=== PATIENT | male | born 1965 | race Two or more races ===

== ENCOUNTER 2020-06-18 17:40 | Inpatient (IN) | payer BC, OTHER ==
[~2020-06-18] VITALS: Ht 162.6 cm; Wt 81.7 kg
--- OUTSIDE RECORDS SUMMARY | ~2020-06-18 | XMS | Clinical Summary ---
Demographics + + + | Address | [address] | | | [place] [address] | + + + | Home Phone | | + + + | Preferred Language | Unknown | + + + | Marital Status | Single | + + + | Adventism Affiliation | Unknown | + + + | Race | Unknown | + + + | Ethnic Group | Unknown | + + + Author + + + | Author | [facility] | | | and [place] | + + + | Organization | [facility] | | | and [place] | + + + | Address | Unknown | + + + | Phone | Unavailable | + + + Support + + +---------+ + | Name | Relationship | Address | Phone | + + +---------+ + | Per Pt Non To List | ECON | Unknown | Unavailable | + + +---------+ + Care Team Providers + +------+ + | Care Compliance Project Manager Name | Role | Phone | + +------+ + PCP | Unavailable | + +------+ + Allergies Not on File Medications Not on file Active Problems Not on file Social History + +-------+ +--------+------+ | Tobacco Use | Types | Packs/Day | Years | Date | | | | | Used | | + +-------+ +--------+------+ | Never Assessed | | | | | + +-------+ +--------+------+ + + + | Sex Assigned at | Date Recorded | | | | + + + | Not on file | | + + + Last Filed Vital Signs Not on file Plan of Treatment + + +-------+ + | Health Maintenance | Due Date | Last | Comments | | | | Done | | + + +-------+ + | Vaccine: | | | | | Dtap/Tdap/Td (1 - | 5 | | | | Tdap) | | | | + + +-------+ + | Vaccine: Zoster (1 | | | | | of 2) | 6 | | | + + +-------+ + | Vaccine: Influenza | | | | | (#1) | 0 | | | + + +-------+ + Results Not on filefrom Last 3 Months"
--- OUTSIDE RECORDS SUMMARY | ~2020-06-18 | XMS | Encounter Summary ---
Demographics + + + | Address | [address] | | | [place] [address] | + + + | Home Phone | | + + + | Preferred Language | Unknown | + + + | Marital Status | Single | + + + | Amish Affiliation | Unknown | + + + | Race | Unknown | + + + | Ethnic Group | Unknown | + + + Author + + + | Author | [facility] | | | and [place] | + + + | Organization | [facility] | | | and [place] [...] Team Providers + +------+ + | Care Reservoir Engineer Name | Role | Phone | + +------+ + PCP | Unavailable | + +------+ + Encounter Details +--------+ + + + + | Date | Type | Department | Care Team | Description | +--------+ + + + + | 07/23/ | Emergency | 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
--- OUTSIDE RECORDS SUMMARY | ~2020-06-18 | XMS | Encounter Summary ---
Demographics + + + | Address | [address] | | | [place] [address] | + + + | Home Phone | | + + + | Preferred Language | Unknown | + + + | Marital Status | Single | + + + | Presybeterian Affiliation | Unknown | + + + | Race | Unknown | + + + | Ethnic Group | Unknown | + + + Author + + + | Author | [facility] | | | and [place] | + + + | Organization | [facility] | | | and [place] | [...] Team Providers + +------+ + | Care Timber Incisor Operator Name | Role | Phone | + +------+ + PCP | Unavailable | + +------+ + Encounter Details +--------+ + + + + | Date | Type | Department | Care Team | Description | +--------+ + + + + | 07/23/ | Emergency | [facility] | Johann Block DO | MALE GENITAL DIS NEC | | 2005 | | [facility] | [address] | | | | | EMERGENCY CENTER | [place] [address] | | | | | [address] [facility] | [phone] | | | | | [place], [place] | | | | | | [address] | | | | | | [phone] | | | +--------+ + + + [...]
--- OUTSIDE RECORDS SUMMARY | ~2020-06-18 | XMS | Clinical Summary ---
Demographics + + + | Address | [address] | | | [place] [address] | + + + | Home Phone | | + + + | Preferred Language | Unknown | + + + | Marital Status | Single | + + + | Taoism Affiliation | Unknown | + + + | Race | Unknown | + + + | Ethnic Group | Unknown | + + + Author + + + | Author | [facility] | | | and [place] | + + + | Organization | [facility] [...] Team Providers + +------+ + | Care Information Technology Analyst Name | Role | Phone | + [...]
[~2020-06-18 17:40] MED LIST: NORCO 5-325 TA1 EACH PO
--- NOTE | 2020-06-19 13:08 | EKG ---
[facility] [address] [facility] [place], [place] [address] Signed Normal sinus rhythm Inferior infarct , age undetermined Abnormal ECG No previous ECGs available Confirmed by BRENDA BRANCH MD ([id number]) on 06/19/2020 1:07:48 PM Electronically Signed By: BRENDA BRANCH MD 06/19/20 1308 PATIENT NAME: MARIAM CERDANAMITA Electrocardiogram DATE OF : 67 PHYSICIAN: BRENDA BRANCH MD REPORT #: [id number] REPORT IS CONFIDENTIAL AND NOT TO BE RELEASED WITHOUT AUTHORIZATION
[2020-06-19] MEDS ORDERED: LEVOTHYROXINE175 MCG PO (14:49)
[2020-06-19] MEDS ORDERED: ESZOPICLONE3 MG PO (14:50)
== END 2020-06-26 15:20 | disposition short-term general hospital (02) | DRG 177 ==
LOC: ED 17:40 → MS 20:01 → CCU 20:01 → MS 06-21 11:18 → CCU 06-21 11:19 → MS 06-21 20:14 → CCU 06-23 10:10
PROVIDERS: ADMIT Internal Medicine
PROC: 0BH17EZ Insertion of Endotracheal Airway into Trachea, Via Natural or Artificial Opening (ICD-10-PCS; principal; 2020-06-26)
DX: U07.1 COVID-19 (principal); J12.89 Other viral pneumonia; J96.01 Acute respiratory failure with hypoxia; D69.6 Thrombocytopenia, unspecified; R74.0 Nonspecific elevation of levels of transaminase and lactic acid dehydrogenase [LDH]; E03.9 Hypothyroidism, unspecified; K59.00 Constipation, unspecified; Z87.891 Personal history of nicotine dependence
CPT/HCPCS: 31500; 36600; 71045; 71260; 80053; 82803; 83605; 83735; 84484; 85025; 87040; 93005; 93010; 94002; 94667; 94668; 94760; 94799; 96360; 99285-25; J0330; J1100; J1650; J2001; J2704; J7030; J7050; Q9967

== ENCOUNTER 2020-07-17 10:57 | Emergency (ER) | payer BC ==
[~2020-07-17] VITALS: Ht 162.6 cm; Wt 81.7 kg
[~2020-07-17 10:57] MED LIST changes: +ESZOPICLONE3 MG PO; +LEVOTHYROXINE175 MCG PO
--- OUTSIDE RECORDS SUMMARY | 2020-07-17 11:00 | XMS ---
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 Bradley has no Care Guidelines for this patient. E.DMary VISIT COUNT (12 MO.) 2 ANA Persaud TOTAL 2 NOTE: Visits indicate total known visits. ED/UCC VISIT TRACKING (12 MO.) 07/17/2020 10:58 [facility] [place] TYPE: Emergency COMPLAINT: - FEVER, COUGH 06/18/2020 17:40 [facility] [place] TYPE: Emergency COMPLAINT: - FLU SYMPTOMS INPATIENT VISIT TRACKING (12 MO.) 06/26/2020 15:41 [facility] TYPE: Internal Medicine DIAGNOSES: - Takotsubo syndrome - Nonspecific elevation of levels of transaminase and lactic ac - Other specified sepsis - Other thrombophilia - COVID-19 - Other viral pneumonia - Hypoxia, Respiratory Failure, Covid 19 - Overweight - Cardiac arrest, cause unspecified - Acute respiratory failure with hypoxia - Metabolic encephalopathy 06/18/2020 20:01 [facility] [place] TYPE: Critical Care COMPLAINT: - HYPOXIA,COVID 19 DIAGNOSES: - Hypothyroidism, unspecified - Personal history of nicotine dependence - Thrombocytopenia, unspecified - Constipation, unspecified - COVID-19 - Personal history of nicotine dependence - Acute respiratory failure with hypoxia - Hypothyroidism, unspecified - Other viral pneumonia - Nonspecific elevation of levels of transaminase and lactic ac - Nonspecific elevation of levels of transaminase and lactic ac - Constipation, unspecified - Acute respiratory failure with hypoxia - Other viral pneumonia - Thrombocytopenia, unspecified [email or web address]
[2020-07-17] MEDS ORDERED: FLOVENT HFA12 GM INH (11:13)
[2020-07-17] MEDS ORDERED: VENTOLIN HFA18 GM INH (11:13)
[2020-07-17] MEDS ORDERED: VIRTUSSIN AC L118 ML PO (11:14)
[2020-07-17] MEDS ORDERED: LEVOTHYROXINE175 MCG PO (11:14)
[2020-07-17] MEDS ORDERED: ZITHROMAX250 MG PO (15:22)
[2020-07-17] MEDS ORDERED: PREDNISONE20 MG PO (15:22)
== END 2020-07-17 15:59 | disposition home or self-care (01) ==
LOC: ED 10:57
DX: J18.9 Pneumonia, unspecified organism (principal); Z79.899 Other long term (current) drug therapy; Z99.81 Dependence on supplemental oxygen; Z86.19 Personal history of other infectious and parasitic diseases
CPT/HCPCS: 71045; 80048; 83605; 85025; 96361; 96374; 99283-25; J1100; J7030

== ENCOUNTER 2022-09-15 05:35 | Day surgery (SDC) | payer OTHER ==
[~2022-09-15] VITALS: Ht 162.6 cm; Wt 102.7 kg
[~2022-09-15 05:35] MED LIST changes: +FLOVENT HFA12 GM INH; +PREDNISONE20 MG PO; +SINGULAIR10 MG PO; +VENTOLIN HFA18 GM INH; +VIRTUSSIN AC L118 ML PO; +ZITHROMAX250 MG PO
[2022-09-15] MEDS ORDERED: LIPITOR20 MG (05:47)
[2022-09-15] MEDS ORDERED: PREDNISONE20 MG PO (05:47)
--- NOTE | 2022-09-15 08:09 | NUR ---
09/15/22 0809 Sheets,Kyra 0746 PT ARRIVED TO PACU IN 10L VIA MASK, RESP EVEN AND UNLABORED WITH ORAL AIRWAY IN PLACE. PT NONAROUSABLE. 0754 PT WOKE TO TACTILE STIMULI AND ORAL AIRWAY REMOVED. PT COUGHING AND HOB INCREASED SLIGHTLY. PT FALLS BACK TO SLEEP WITH SNORING NOTED. 0757 O2 DECREASED TO 6L. 0802 LARGE AMOUNT OF SNORING NOTED AND PT WOKE TO TACTILE STIMULI. PT NODS TO QUESTIONS. HOB INCREASED AND O2 REMOVED. PT RIGHT BACK TO SLEEP.
--- NOTE | 2022-09-15 12:21 | OR ---
[facility] [address] [place], [place] [address] Signed DATE OF OPERATION: 09/15/2022 SURGEON: Vaibhav Curtis MD PREOPERATIVE DIAGNOSIS: Screening. PREOPERATIVE DIAGNOSES: 1. Moderate internal hemorrhoids. 2. 4 mm polyp at 4 cm. 3. 4 mm polyp at 45 cm. 4. 5 mm polyp at the cecum. 5. 4 mm polyp at hepatic flexure. PROCEDURE: Colonoscopy with hot biopsy. ESTIMATED BLOOD LOSS: None. INDICATIONS: Brian is a 57-year-old obese gentleman, asked to see me for his initial screening colonoscopy. He has no lower GI complaints. There is no family history of colon cancer or polyps. I had given him a pamphlet on colonoscopy. He understands the nature of the test. There is risk including, but not limited to gas bloating, crampy abdominal pain, bleeding, perforation requiring surgery, and missed diagnosis. We also discussed the need for monitored anesthesia care given his heavy full round face, neck, chest, abdomen, and the fact that he had very significant COVID disease just over a year ago. He still continues to cough regularly. He also has sleep apnea requiring CPAP. He expressed understanding and wished to proceed. PROCEDURE NOTE: Brian was taken into our endoscopy suite and placed in the left lateral decubitus position. He was given monitored anesthesia care per our nurse register in chancery. He continued to cough frequently and required significant attention from our anesthesia provider. A digital rectal exam was performed and this was unremarkable. He had no external hemorrhoids. He had good sphincter tone. There were no masses. The adult colonoscope was introduced and advanced all around into the cecum under direct visualization of the camera without difficulty. His prep was good. We could easily see the appendiceal orifice and the ileocecal valve. The above-mentioned polyps were easily Electronically Signed By: VAIBHAV CURTIS MD 09/15/22 1221 PATIENT NAME: BRIAN VERMA OPERATIVE REPORT DATE OF : 67 REPORT #: [id number] PHYSICIAN: VAIBHAV CURTIS MD PCP: MARCELLO RIVAS MD REPORT IS CONFIDENTIAL AND NOT TO BE RELEASED WITHOUT AUTHORIZATION [facility] [address] [place], [place] [address] Signed removed with the help of hot biopsy forceps. Once in the rectum, the scope had been retroflexed and he has minimal to moderate internal hemorrhoid columns. After this, the gas was suctioned out and the colonoscope removed. Brian tolerated the procedure quite well. RECOMMENDATIONS: I will see Brian back in my office in the next 1 to 2 weeks to review his results. Vaibhav Curtis MD ALB/GLORYL /[id number] cc: MD Dr. Marcello Fox Copies: VAIBHAV CURTIS MD ~ Electronically Signed By: VAIBHAV CURTIS MD 09/15/22 1221 PATIENT NAME: BRIAN VERMA OPERATIVE REPORT DATE OF : 67 REPORT #: [id number] PHYSICIAN: VAIBHAV CURTIS MD PCP: MARCELLO RIVAS MD REPORT IS CONFIDENTIAL AND NOT TO BE RELEASED WITHOUT AUTHORIZATION
--- NOTE | 2022-09-21 13:03 | PATH ---
[facility] [address] [place], [place] [address] Signed SPECIMEN(S): A COLON POLYP AT 4 CM SPECIMEN(S): B COLON POLYP AT 45 CM SPECIMEN(S): C CECAL POLYP SPECIMEN(S): D HEPATIC FLEXURE POLYP SPECIMEN SOURCE: A. COLON POLYP AT 4 CM B. COLON POLYP AT 45 CM C. CECAL POLYP D. HEPATIC FLEXURE POLYP CLINICAL HISTORY: Screening colonoscopy. Postop: Polyps, internal hemorrhoids. FINAL PATHOLOGIC DIAGNOSIS: A. Colon polyp at 4 cm: - Hyperplastic polyp (one fragment). B. Colon polyp at 45 cm: - Tubular adenoma (one fragment). C. Cecal polyp: - Tubular adenoma (multiple fragments). D. Hepatic flexure polyp: - Tubular adenoma (one fragment). JVR:[id number]:[id number] MICROSCOPIC EXAMINATION: Histologic sections of all submitted blocks are examined by light microscopy. These findings, together with the gross examination, support the pathologic diagnosis. GROSS DESCRIPTION: Four specimens are received in four containers labeled with "BALTA." A. The specimen, labeled "BALTA, 1," and designated on the requisition "colon polypectomy at 4 cm," is received in formalin and consists of one fragment of pink-rose tissue (0.3 cm in greatest dimension). The specimen is submitted entirely in cassette (A1). B. The specimen, labeled "BALTA, 2," and designated on the requisition "colon polypectomy at 45 cm," is received in formalin and consists of two fragments of pink-rose tissue (0.3 cm in greatest dimension). The specimen is submitted entirely in cassette (B1). C. The specimen, labeled "BALTA, 3," and designated on the requisition "cecum PATIENT NAME: WILMAN VERMA PATHOLOGY DATE OF : 67 REPORT #: [id number] PHYSICIAN: SHAHEED CHAVARRIA PCP: SAQIB RIVAS MD REPORT IS CONFIDENTIAL AND NOT TO BE RELEASED WITHOUT AUTHORIZATION [facility] [address] [place], [place] [address] Signed polypectomy," is received in formalin and consists of four fragments of pink-rose tissue (0.2-0.3 cm in greatest dimension). The specimen is submitted entirely in cassette (C1). D. The specimen, labeled "BALTA, 4," and designated on the requisition "hepatic flexure polypectomy," is received in formalin and consists of one fragment of pink-rose tissue (0.2 cm in greatest dimension). The specimen is submitted entirely in cassette (D1). AC (under the direct supervision of a pathologist) The Gross Description was prepared using a voice recognition system. The report was reviewed for accuracy; however, sound-alike word errors, addition and/or deletions may occur. If there is any question about this report, please contact Client Services. PERFORMING LABORATORY: The technical component was performed by [facility], [address] [place] [id number] (CLIA# [id number]). Professional interpretation was performed by [facility] - [facility], [address] [place] [id number] (CLIA#: [id number]). Diagnostician: Alfredo Neely MD Pathologist Electronically Signed 09/21/2022 Copies: ~ PATIENT NAME: WILMAN VERMA PATHOLOGY DATE OF : 67 REPORT #: [id number] PHYSICIAN: SHAHEED PATHOLOGY PCP: SAQIB RIVAS MD REPORT IS CONFIDENTIAL AND NOT TO BE RELEASED WITHOUT AUTHORIZATION
== END 2022-09-15 08:32 | disposition home or self-care (01) ==
LOC: OPS 05:35 → DS 05:35 → OPS 07:30 → DS 08:15 → OPS 08:32
PROVIDERS: ATTEND Colon & Rectal Surgery
PROC: 0DBE8ZX Excision of Large Intestine, Via Natural or Artificial Opening Endoscopic, Diagnostic (ICD-10-PCS; principal; 2022-09-15 07:30)
DX: Z12.11 Encounter for screening for malignant neoplasm of colon (principal); D12.0 Benign neoplasm of cecum; D12.3 Benign neoplasm of transverse colon; K64.8 Other hemorrhoids; E66.9 Obesity, unspecified; E78.5 Hyperlipidemia, unspecified; G47.33 Obstructive sleep apnea (adult) (pediatric); J84.10 Pulmonary fibrosis, unspecified; U09.9 Post COVID-19 condition, unspecified; R05.9 Cough, unspecified; Z87.891 Personal history of nicotine dependence; Z68.37 Body mass index [BMI] 37.0-37.9, adult
CPT/HCPCS: J2704; J7121